=== PATIENT | female | born 2005 | race Caucasian/White ===

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

== ENCOUNTER 2023-06-14 08:29 | Emergency (ER) | payer SELFPAY ==
[~2023-06-14] VITALS: Ht 167.6 cm; Wt 113.6 kg
[~2023-06-14 08:29] MED LIST changes: +AMOXICILLIN 8751 TAB PO; +CRUTCHES MC; +EPIPEN 2-PAK1 MG/ML IM; +FIRST-MOUTHWASH1 KIT PO; +FLEXERIL 1010 MG/TAB PO; +PREDNISONE20 MG PO
[2023-06-14] MEDS ORDERED: NS 1,000 ML IV ONE (09:15)
[2023-06-14 09:50] LABS: COLLECTION METHOD CLEAN CATCH
[2023-06-14 10:02] LABS: BASO % 0.4 % (0.0-2.0); EOS # 0.1 K/mm3 (0.0-0.7); EOS % 1.6 % (0.0-4.0); GRAN % 60.5 % (42.2-75.2); HEMATOCRIT 43.2 % (35.0-45.0); HEMOGLOBIN 14.2 g/dl (12.0-15.0); LYMPH # 2.5 K/mm3 (1.2-3.4); LYMPH % 30.8 % (20.0-51.0); MEAN CELL VOLUME 91 fl (80.0-95.0); MEAN CORPUSCULAR HEMOGLOBIN 30 pg (26-32); MEAN CORPUSCULAR HGB CONC 33 g/dl (33.0-37.0); MEAN PLATELET VOLUME 11.1 fl (7.4-10.4); MONO # 0.5 K/mm3 (0.1-0.6); MONO % 6.5 % (1.7-9.3); PLATELET COUNT 348 K/mm3 (130-400); RED BLOOD COUNT 4.73 M/mm3 (4.10-5.30); REDCELL DISTRIBUTION WIDTH-CV 13.3 % (11.5-14.5)
[2023-06-14 10:16] LABS: ALBUMIN 3.9 gm/dL (3.5-5.0); C-REACTIVE PROTEIN 0.68 mg/dL (0.00-0.50); CREATININE, serum 0.85 mg/dL (0.57-1.11); POTASSIUM 4.3 mmol/L (3.5-4.5)
[2023-06-14 10:27] LABS: PH 6.5 (5.0-8.5); URINE APPEARANCE TURBID (CLEAR/HAZY); URINE BLOOD TRACE (NEGATIVE); URINE COLOR YELLOW (YELLOW); URINE GLUCOSE NEGATIVE (NEGATIVE); URINE KETONE NEGATIVE (NEGATIVE); URINE NITRATE NEGATIVE (NEGATIVE); URINE PROTEIN(semi-quant) NEGATIVE (NEGATIVE)
[2023-06-14 10:32] LABS: BILIRUBIN,TOTAL 0.4 mg/dL (0.2-1.2)
[2023-06-14 10:38] LABS: URINE BACTERIA MODERATE /hpf (NONE SEEN)
[2023-06-14 11:01] VITALS: BP 117/75; PULSE 80; TEMP 98.4
== END 2023-06-14 11:00 | disposition home or self-care (01) ==
LOC: COL.ER 08:29
PROVIDERS: Emergency Medicine
DX: E86.0 Dehydration (principal)
CPT/HCPCS: J7030

== ENCOUNTER 2023-07-25 17:18 | Emergency (ER) | payer SELFPAY ==
[~2023-07-25] VITALS: Ht 160 cm; Wt 113.6 kg
[2023-07-25 18:06] LABS: BASO % 0.4 % (0.0-2.0); EOS # 0.2 K/mm3 (0.0-0.7); EOS % 2.1 % (0.0-4.0); GRAN # 6.2 K/mm3 (1.4-6.5); GRAN % 63.2 % (42.2-75.2); HEMATOCRIT 41.2 % (35.0-45.0); HEMOGLOBIN 13.6 g/dl (12.0-15.0); LYMPH # 2.6 K/mm3 (1.2-3.4); LYMPH % 26.8 % (20.0-51.0); MEAN CELL VOLUME 92 fl (80.0-95.0); MEAN CORPUSCULAR HEMOGLOBIN 30 pg (26-32); MEAN CORPUSCULAR HGB CONC 33 g/dl (33.0-37.0); MEAN PLATELET VOLUME 10.8 fl (7.4-10.4); MONO # 0.7 K/mm3 (0.1-0.6); MONO % 7.3 % (1.7-9.3); PLATELET COUNT 342 K/mm3 (130-400); RED BLOOD COUNT 4.48 M/mm3 (4.10-5.30); REDCELL DISTRIBUTION WIDTH-CV 13.1 % (11.5-14.5)
[2023-07-25 18:09] LABS: COLLECTION METHOD CLEAN CATCH
[2023-07-25 18:15] LABS: PH 6.5 (5.0-8.5); URINE APPEARANCE CLOUDY (CLEAR/HAZY); URINE BLOOD NEGATIVE (NEGATIVE); URINE COLOR YELLOW (YELLOW); URINE GLUCOSE NEGATIVE (NEGATIVE); URINE KETONE NEGATIVE (NEGATIVE); URINE NITRATE NEGATIVE (NEGATIVE); URINE PROTEIN(semi-quant) NEGATIVE (NEGATIVE)
[2023-07-25] MEDS ORDERED: NS 1,000 ML IV ONE (18:15)
[2023-07-25] MEDS ORDERED: Ondansetron 4 MG/2 ML VIAL IV ONE (18:15)
[2023-07-25 18:26] LABS: ALBUMIN 3.7 g/dL (3.5-5.0); BILIRUBIN,TOTAL 0.4 mg/dL (0.2-1.2); CREATININE, serum 0.79 mg/dL (0.57-1.11); POTASSIUM 4.2 mEq/L (3.5-4.5); TOTAL PROTEIN 6.7 g/dl (6.2-8.1)
[2023-07-25] MEDS ORDERED: ZOFRAN ODT8 MG PO (19:32)
[2023-07-25 19:44] VITALS: BP 125/76; PULSE 91; TEMP 98.9
== END 2023-07-25 19:44 | disposition home or self-care (01) ==
LOC: COL.ER 17:18
PROVIDERS: Nurse Practitioner
DX: R11.2 Nausea with vomiting, unspecified (principal); R19.7 Diarrhea, unspecified; F17.290 Nicotine dependence, other tobacco product, uncomplicated
CPT/HCPCS: J2405; J7030

== ENCOUNTER 2023-07-28 08:16 | Emergency (ER) | payer SELFPAY ==
[~2023-07-28] VITALS: Ht 167.6 cm; Wt 113.6 kg
[~2023-07-28 08:16] MED LIST changes: +ZOFRAN ODT8 MG PO
[2023-07-28 08:25] VITALS: TEMP 98.1
[2023-07-28] MEDS ORDERED: Ondansetron 4 MG/2 ML VIAL IV ONE (08:45)
[2023-07-28] MEDS ORDERED: LR 1,000 ML IV ONE (08:45)
[2023-07-28 08:56] LABS: BASO % 0.4 % (0.0-2.0); EOS # 0.1 K/mm3 (0.0-0.7); EOS % 1.5 % (0.0-4.0); GRAN # 5.3 K/mm3 (1.4-6.5); GRAN % 62.2 % (42.2-75.2); HEMATOCRIT 41.3 % (35.0-45.0); HEMOGLOBIN 13.6 g/dl (12.0-15.0); LYMPH # 2.5 K/mm3 (1.2-3.4); LYMPH % 28.7 % (20.0-51.0); MEAN CELL VOLUME 92 fl (80.0-95.0); MEAN CORPUSCULAR HEMOGLOBIN 30 pg (26-32); MEAN CORPUSCULAR HGB CONC 33 g/dl (33.0-37.0); MEAN PLATELET VOLUME 10.9 fl (7.4-10.4); MONO # 0.6 K/mm3 (0.1-0.6); PLATELET COUNT 331 K/mm3 (130-400); RED BLOOD COUNT 4.47 M/mm3 (4.10-5.30); REDCELL DISTRIBUTION WIDTH-CV 13.1 % (11.5-14.5)
[2023-07-28 08:59] LABS: COLLECTION METHOD CLEAN CATCH
[2023-07-28 09:25] LABS: URINE APPEARANCE CLOUDY (CLEAR/HAZY); URINE BLOOD NEGATIVE (NEGATIVE); URINE COLOR YELLOW (YELLOW); URINE GLUCOSE NEGATIVE (NEGATIVE); URINE KETONE NEGATIVE (NEGATIVE); URINE NITRATE NEGATIVE (NEGATIVE); URINE PROTEIN(semi-quant) NEGATIVE (NEGATIVE)
[2023-07-28 09:52] LABS: ALBUMIN 3.8 g/dL (3.5-5.0); BILIRUBIN,TOTAL 0.4 mg/dL (0.2-1.2); C-REACTIVE PROTEIN 0.61 mg/dL (0.00-0.50); CALCIUM 9.2 mg/dL (8.4-10.2); CREATININE, serum 0.82 mg/dL (0.57-1.11); TOTAL PROTEIN 7.1 g/dl (6.2-8.1)
[2023-07-28] MEDS ORDERED: PHENERGAN 25 TA25 MG PO (10:09)
[2023-07-28 10:40] VITALS: BP 122/84; PULSE 93
== END 2023-07-28 10:40 | disposition home or self-care (01) ==
LOC: COL.ER 08:16
PROVIDERS: Family Medicine
DX: K52.9 Noninfective gastroenteritis and colitis, unspecified (principal)
CPT/HCPCS: J2405; J7120

== ENCOUNTER 2024-01-27 08:57 | Emergency (ER) | payer SELFPAY ==
[~2024-01-27] VITALS: Ht 167.6 cm; Wt 113.6 kg
[~2024-01-27 08:57] MED LIST changes: +PHENERGAN 25 TA25 MG PO
[2024-01-27 09:01] VITALS: TEMP 98.2
[2024-01-27] MEDS ORDERED: fentaNYL 50 MCG/ML 2 ML VIAL IV ONE (09:45)
[2024-01-27] MEDS ORDERED: NS 1,000 ML IV ONE (09:45)
[2024-01-27 10:15] LABS: BASO % 0.2 % (0.0-2.0); EOS # 0.1 K/mm3 (0.0-0.7); EOS % 1.4 % (0.0-4.0); GRAN # 5.8 K/mm3 (1.4-6.5); GRAN % 62.9 % (42.2-75.2); HEMATOCRIT 40.9 % (35.0-45.0); HEMOGLOBIN 13.8 g/dl (12.0-15.0); LYMPH # 2.4 K/mm3 (1.2-3.4); LYMPH % 26.1 % (20.0-51.0); MEAN CELL VOLUME 91 fl (80.0-95.0); MEAN CORPUSCULAR HEMOGLOBIN 31 pg (26-32); MEAN CORPUSCULAR HGB CONC 34 g/dl (33.0-37.0); MEAN PLATELET VOLUME 11.2 fl (7.4-10.4); MONO # 0.8 K/mm3 (0.1-0.6); MONO % 9.1 % (1.7-9.3); PLATELET COUNT 299 K/mm3 (130-400); RED BLOOD COUNT 4.52 M/mm3 (4.10-5.30); REDCELL DISTRIBUTION WIDTH-CV 13.3 % (11.5-14.5)
[2024-01-27] MEDS ORDERED: Iohexol 300 - 100 ML VIAL IV ONE (10:30)
[2024-01-27 10:31] LABS: ALBUMIN 3.6 g/dL (3.5-5.0); CALCIUM 9.3 mg/dL (8.4-10.2); CREATININE, serum 0.84 mg/dL (0.57-1.11); POTASSIUM 4.1 mEq/L (3.5-4.5); TOTAL PROTEIN 6.8 g/dl (6.2-8.1)
[2024-01-27] MEDS ORDERED: NS 100 ML IV SCH (10:32)
[2024-01-27 10:48] LABS: BILIRUBIN,TOTAL 0.4 mg/dL (0.2-1.2)
[2024-01-27 10:48] LABS: COLLECTION METHOD CLEAN CATCH
[2024-01-27 10:58] LABS: PH 6.5 (5.0-8.5); URINE APPEARANCE CLOUDY (CLEAR/HAZY); URINE BLOOD NEGATIVE (NEGATIVE); URINE COLOR YELLOW (YELLOW); URINE GLUCOSE NEGATIVE (NEGATIVE); URINE KETONE NEGATIVE (NEGATIVE); URINE NITRATE NEGATIVE (NEGATIVE); URINE PROTEIN(semi-quant) NEGATIVE (NEGATIVE); URINE UROBILINOGEN 0.2 E.U/dL (0.2-1.0)
[2024-01-27] MEDS ORDERED: MACROBID 1100 MG/CAP PO (11:12)
[2024-01-27] MEDS ORDERED: cefTRIAXone 1 G in Water For Injection,Sterile 10 ML IV ONE (11:15)
[2024-01-27 11:28] VITALS: BP 129/91; PULSE 89
== END 2024-01-27 11:31 | disposition home or self-care (01) ==
LOC: COL.ER 08:57
PROVIDERS: Family Medicine
DX: N39.0 Urinary tract infection, site not specified (principal); R10.32 Left lower quadrant pain
CPT/HCPCS: J0696; J3010; J7030; Q9967